=== PATIENT | male | born 1990 | race Hispanic/Latino ===

== ENCOUNTER 2016-11-15 11:42 | Observation (INO) | payer OTHER ==
[2016-11-15 12:01] VITALS: RESP 20; O2SAT 98
[2016-11-15] MEDS ORDERED: Sodium Chloride 0.9% 1,000 ML IV STA ×3 (12:24→19:37)
[2016-11-15 12:46] LABS: BASO % 0.2 % (0.0-2.0); EOS % 0.7 % (0.0-4.0); HEMATOCRIT 43.8 % (35.0-51.0); LYMPH # 2.6 K/uL (1.0-4.3); LYMPH % 41.3 % (20.0-40.0); MEAN CELL VOLUME 89.9 fl (80.0-94.0); MEAN CORPUSCULAR HEMOGLOBIN 31.4 pg (27.0-31.0); MEAN CORPUSCULAR HGB CONC 34.9 g/dL (33.0-37.0); MEAN PLATELET VOLUME 9.6 fl (7.2-11.7); MONO # 0.5 K/uL (0.0-0.8); MONO % 7.9 % (0.0-10.0); NEUT # 3.1 K/uL (1.8-7.0); NEUT % 49.9 % (50.0-75.0); NRBC % 0.3 % (0.0-0.0); RED CELL DISTRIBUTION WIDTH 13.3 % (11.5-14.5); WHITE BLOOD COUNT 6.2 K/uL (4.8-10.8)
[2016-11-15 13:17] LABS: ALB/GLOB RATIO 1.3 (1.0-2.1); ALKALINE PHOSPHATASE 53 U/L (38-126); ALT/SGPT 31 U/L (21-72); AST/SGOT 38 U/L (17-59); BILIRUBIN,TOTAL 0.9 mg/dl (0.2-1.3); BLOOD UREA NITROGEN 19 mg/dl (9-20); CALCIUM 10.1 mg/dL (8.4-10.2); CARBON DIOXIDE 24 mmol/L (22-30); CHLORIDE 101 mmol/L (98-107); GFR AFRICAN-AMERICAN > 60; GLUCOSE,RANDOM 101 mg/dL (75-110); POTASSIUM 4.3 MMOL/L (3.6-5.0); SODIUM 141 mmol/l (132-148); TOTAL PROTEIN 8.3 G/DL (6.3-8.2)
[2016-11-15 13:29] LABS: LIPASE 62 U/L (23-300)
--- NOTE | 2016-11-15 14:12 | ED PDOC ---
HPI: Abdomen Time Seen by Provider: 11/15/16 11:51 Chief Complaint (Nursing): Abdominal Pain Chief Complaint (Provider): diffuse abdominal pain, fever, nausea History Per: Patient History/Exam Limitations: no limitations Onset/Duration Of Symptoms: Days Context: Food Severity: Moderate Pain Scale Rating Of: 6 Location Of Pain/Discomfort: Diffuse Quality Of Discomfort: Sharp, Cramping Associated Symptoms: Fever, Chills, Nausea, Vomiting, Loss Of Appetite Additional Complaint(s): Pt reports diffuse pain with nausea/vomiting. PT states temp was up to 103.0 at home. Pt reports having cough and allergy symptoms a few days prior. Pt states he had similar last year. States he was going a triathlon when he collapsed from pain. Pt states he was seen in an ER in [place] and was told everything was okay. Pt states he was not feverish at this time. Pt states he is currently training for a marathon. Past Medical History Reviewed: Historical Data, Nursing Documentation, Vital Signs Vital Signs: Last Vital Signs Temp 97 F L 11/15/16 11:59 Pulse 64 11/15/16 11:59 Resp 20 11/15/16 11:59 BP 114/76 11/15/16 11:59 Pulse Ox 98 11/15/16 14:16 - Medical History PMH: No Chronic Diseases - Surgical History Surgical History: No Surg Hx - Family History Family History: States: No Known Family Hx - Living Arrangements Living Arrangements: With Family - Social History Current smoker - smoking cessation education provided: No - Home Medications Home Medications: Ambulatory Orders Medication Instructions Recorded No Known Home Med 11/15/16 - Allergies Allergies/Adverse Reactions: Allergies Allergy/AdvReac Type Severity Reaction Status Date / Time No Known Allergies Allergy Verified 11/15/16 11:58 Review of Systems ROS Statement: Except As Marked, All Systems Reviewed And Found Negative Constitutional: Positive for: Fever, Chills Respiratory: Positive for: Cough (a few days ago ) Physical Exam - Reviewed Nursing Documentation Reviewed: Yes Vital Signs Reviewed: Yes - Physical Exam Appears: Positive for: Well, Non-toxic, No Acute Distress Head Exam: Positive for: ATRAUMATIC, NORMAL INSPECTION, NORMOCEPHALIC Skin: Positive for: Normal Color, Warm, DRY Eye Exam: Positive for: Normal appearance ENT: Positive for: Normal ENT Inspection Neck: Positive for: Normal, Painless ROM Cardiovascular/Chest: Positive for: Regular Rate, Rhythm Respiratory: Positive for: Normal Breath Sounds. Negative for: Accessory Muscle Use, Respiratory Distress Gastrointestinal/Abdominal: Positive for: Bowel Sounds, Soft, Tenderness ( Diffuse ), Guarding (Diffuse ). Negative for: Normal Exam, Rebound Back: Positive for: Normal Inspection Extremity: Positive for: Normal ROM Neurologic/Psych: Positive for: Alert, Oriented - Laboratory Results Result Diagrams: 11/15/16 12:38 11/15/16 12:38 - ECG O2 Sat by Pulse Oximetry: 98 Medical Decision Making Medical Decision Making: Urine with trace ketones. 1405 - Pt reports worsening pain, morphine and CT ordered. (+) gastritis and mesenteric adenitis on CT Pt continues to vomit in ER. Admission discussed with Dr. Ellington. Disposition - Clinical Impression Clinical Impression: Mesenteric adenitis, Gastritis, Intractable vomiting - Patient ED Disposition Is Patient to be Admitted: Yes - Disposition Referrals: [facility] [Outside] Disposition Time: 18:38 Condition: STABLE - Pt Status Changed To: Hospital Disposition Of: Observation - POA Present On Arrival: None
[2016-11-15] MEDS ORDERED: Iohexol 300 100 ML IJ ONE (14:25)
[2016-11-15] MEDS ORDERED: Sodium Chloride 0.9% 50 ML IV ONE (14:25)
--- NOTE | 2016-11-15 15:22 | CT ---
PROCEDURE: CT Abdomen and Pelvis with contrast HISTORY: abdominal pain, vomiting COMPARISON: None. TECHNIQUE: Axial and reformatted coronal and sagittal CT images of the abdomen and pelvis were obtained after IV contrast administration. Contrast dose: 95 mL of Omnipaque 300 Radiation dose: Total exam DLP = 884.55 mGy-cm. This CT exam was performed using one or more of the following dose reduction techniques: Automated exposure control, adjustment of the mA and/or kV according to patient size, and/or use of iterative reconstruction technique. FINDINGS: LOWER THORAX: Unremarkable. LIVER: Unremarkable. No gross lesion or ductal dilatation. GALLBLADDER AND BILE DUCTS: Unremarkable. PANCREAS: Unremarkable. No gross lesion or ductal dilatation. SPLEEN: Unremarkable. ADRENALS: Unremarkable. No mass. KIDNEYS AND URETERS: Unremarkable. No hydronephrosis. No solid mass. VASCULATURE: Unremarkable. No aortic aneurysm. BOWEL: Unremarkable. No obstruction. No gross mural thickening. APPENDIX: There is no evidence of appendicitis. PERITONEUM: Unremarkable. No free fluid. No free air. LYMPH NODES: Unremarkable. No enlarged lymph nodes. BLADDER: Unremarkable. REPRODUCTIVE: Unremarkable. BONES: No acute fracture. OTHER FINDINGS: None. IMPRESSION: Gastric mucosal thickening. Correlate clinically for gastritis. Slightly prominent mesenteric lymph nodes. Otherwise no CT evidence of acute pathology in the abdomen and pelvis.
[2016-11-15] MEDS ORDERED: Alum-Mag Hydrox-Simethicone Susp (30 mL) PO STA (15:36)
[2016-11-15] MEDS ORDERED: Alum-Mag Hydrox-Simethicone Susp (30 mL) ONE (15:40)
[2016-11-15] MEDS ORDERED: Atrop/Hyos/Scop/PhenoB Elixir PO STA (17:04)
[2016-11-15] MEDS ORDERED: Promethazine 25 MG in Sodium Chloride 0.9% 50 ML IVPB STA (18:13)
[2016-11-15 19:27] VITALS: BP 148/77; PULSE 46; TEMP 98.6
== END 2016-11-15 20:18 | disposition home or self-care (01) ==
LOC: H.ER 11:42 → H.ERHOLD 18:29
DX: I88.0 Nonspecific mesenteric lymphadenitis (principal); K29.70 Gastritis, unspecified, without bleeding; R11.11 Vomiting without nausea